=== PATIENT | female | born 1965 | race Caucasian/White ===

== ENCOUNTER 2017-03-26 12:22 | Observation (INO) | payer OTHER ==
[~2017-03-26] VITALS: Ht 162.6 cm; Wt 73.3 kg
[2017-03-26 15:53] LABS: BASOPHIL % 0.4 % (0-2); PLATELET COUNT 333 x10^3mcL (130-400); RED CELL DISTRIBUTION WIDTH 13.8 % (11.5-14.5)
[2017-03-26 16:01] LABS: CALCIUM 9.6 mg/dL (8.5-10.1); CHLORIDE SERUM 104 mmol/L (98-107); CREATININE SERUM 0.8 mg/dL (0.6-1.0); GFR1 > 60 mL/min; GLUCOSE SERUM 77 mg/dL (74-106); POTASSIUM SERUM 4.1 mmol/L (3.5-5.1); SODIUM SERUM 138 mmol/L (136-145)
[2017-03-26 16:05] LABS: ALBUMIN 3.7 g/dL (3.4-5.0); ALKALINE PHOSPHATASE 88 U/L (46-116); ALT/SGPT 31 U/L (14-59); AST/SGOT 16 U/L (15-37); BILIRUBIN TOTAL 0.8 mg/dL (0.20-1.00); TOTAL PROTEIN, SERUM 7.7 g/dL (6.4-8.2)
[2017-03-26] MEDS ORDERED: METFORMIN HCL500 MG PO (17:39)
[2017-03-26] MEDS ORDERED: LISINOPRIL10 MG PO (17:41)
[2017-03-26] MEDS ORDERED: SIMVASTATIN20 M1 PO (17:42)
[2017-03-26 18:36] VITALS: BP 115/67
[2017-03-26 18:41] VITALS: Ht 162.6 cm; Wt 73.3 kg
[2017-03-26 19:05] LABS: UA SPECIFIC GRAVITY >=1.030 (1.005-1.035); microscopic required? YES; urine erythrocyte 2+ (NEGATIVE)
[2017-03-26 19:15] LABS: AMPHETAMINE QUAL UR NONE DETECTED (NEG <=1000)
[2017-03-26 20:27] LABS: PHOSPHOROUS 4.5 mg/dL (2.5-4.9)
[2017-03-26 20:34] LABS: T3 TOTAL 1.1 ng/mL
[2017-03-26 20:35] LABS: CHOLESTEROL/HDL RATIO 1.9
[2017-03-26 20:39] LABS: FREE T4 1.25 ng/dL (0.76-1.46); FREE THYROXINE INDEX 3.6 ug/dL (1.4-4.5)
[2017-03-26 21:38] VITALS: BP 98/56
[2017-03-27 05:43] LABS: CALCIUM 8.9 mg/dL (8.5-10.1); CARBON DIOXIDE 25.4 mmol/L (21-32); CHLORIDE SERUM 109 mmol/L (98-107); CREATININE SERUM 0.7 mg/dL (0.6-1.0); GFR1 > 60 mL/min; GLUCOSE SERUM 81 mg/dL (74-106); POTASSIUM SERUM 4.8 mmol/L (3.5-5.1); SODIUM SERUM 146 mmol/L (136-145)
[2017-03-27 05:45] VITALS: BP 93/59
[2017-03-27 06:14] LABS: BASOPHIL % 0.6 % (0-2); PLATELET COUNT 303 x10^3mcL (130-400); RED CELL DISTRIBUTION WIDTH 13.7 % (11.5-14.5)
[2017-03-27 09:39] VITALS: BP 95/56
[2017-03-27 13:11] VITALS: BP 98/62
[2017-03-27 13:20] VITALS: BP 98/62
== END 2017-03-27 15:54 | disposition home or self-care (01) | DRG 392 ==
LOC: ED 12:22 → DU 17:11
PROVIDERS: Emergency Medicine; ADMIT Family Medicine
DX: K21.9 Gastro-esophageal reflux disease without esophagitis (principal); D68.69 Other thrombophilia; E11.9 Type 2 diabetes mellitus without complications; E11.59 Type 2 diabetes mellitus with other circulatory complications; I10 Essential (primary) hypertension; E78.5 Hyperlipidemia, unspecified; E66.3 Overweight; Z68.27 Body mass index [BMI] 27.0-27.9, adult; Z79.82 Long term (current) use of aspirin; Z79.84 Long term (current) use of oral hypoglycemic drugs
CPT/HCPCS: 83880; 84439; G0378; J7030; Q0092

== ENCOUNTER 2017-08-06 08:20 | Emergency (ER) | payer OTHER ==
[~2017-08-06] VITALS: Ht 160 cm; Wt 73.5 kg
[~2017-08-06 08:20] MED LIST: LISINOPRIL10 MG PO; METFORMIN HCL500 MG PO; SIMVASTATIN20 M1 PO
[2017-08-06 08:27] VITALS: BP 111/80; Ht 160 cm; Wt 73.5 kg
== END 2017-08-06 09:37 | disposition home or self-care (01) ==
LOC: ED 08:20
DX: S61.211A Laceration without foreign body of left index finger without damage to nail, initial encounter (principal); S61.012A Laceration without foreign body of left thumb without damage to nail, initial encounter; I10 Essential (primary) hypertension; E11.9 Type 2 diabetes mellitus without complications; E78.00 Pure hypercholesterolemia, unspecified; X58.XXXA Exposure to other specified factors, initial encounter; Y93.89 Activity, other specified; Y99.8 Other external cause status; Y92.89 Other specified places as the place of occurrence of the external cause
CPT/HCPCS: 90714